=== PATIENT | male | born 1990 | race Caucasian/White ===

== ENCOUNTER 2021-10-01 21:46 | Emergency (ER) | payer MEDICAID, OTHER ==
[~2021-10-01] VITALS: Ht 182.9 cm; Wt 104.5 kg
[2021-10-01 21:56] VITALS: BP 134/94
== END 2021-10-01 22:25 ==
LOC: ER 21:46
DX: Z02.89 Encounter for other administrative examinations (principal); R78.0 Finding of alcohol in blood; V87.7XXA Person injured in collision between other specified motor vehicles (traffic), initial encounter; Y93.89 Activity, other specified; Y92.89 Other specified places as the place of occurrence of the external cause; Y99.8 Other external cause status; Y90.9 Presence of alcohol in blood, level not specified
CPT/HCPCS: 99283

== ENCOUNTER 2022-10-10 13:19 | Emergency (ER) | payer MEDICAID ==
[~2022-10-10] VITALS: Ht 180.3 cm; Wt 104.5 kg
[2022-10-10 13:24] VITALS: BP 139/86
[2022-10-10] MEDS ORDERED: ibuprofen 200mg tablet PO ONE (16:25)
== END 2022-10-10 16:40 | disposition home or self-care (01) ==
LOC: ER 13:20
DX: S63.502A Unspecified sprain of left wrist, initial encounter (principal); X58.XXXA Exposure to other specified factors, initial encounter; Y93.89 Activity, other specified; Y92.89 Other specified places as the place of occurrence of the external cause; Y99.8 Other external cause status
CPT/HCPCS: 29125; 73110; 99284; A6223; L3908; A6446; A6449